=== PATIENT | female | born 1990 | race African-American/Black ===

== ENCOUNTER 2020-04-15 11:49 | Emergency (ER) | payer MEDICARE ==
[~2020-04-15] VITALS: Ht 170.2 cm; Wt 80.0 kg
[2020-04-15 12:03] VITALS: BP 107/65
[2020-04-15 15:03] LABS: BASOPHILS % 0.8 % (0.0-2.0); EOSINOPHILS % 2.4 % (0.0-5.0); HEMATOCRIT. 37.1 % (36.0-48.0); HEMOGLOBIN. 12.5 g/dL (12.0-16.0); LYMPHOCYTES % 29.9 % (20.0-50.0); MEAN CORPUSCULAR HEMOGLOBIN 27.1 pg (28.0-32.0); MEAN CORPUSCULAR VOLUME 80.2 fL (81.0-99.0); MEAN PLATELET VOLUME 7.8 fl (7.4-10.4); MONOCYTES % 5.5 % (2.0-8.0); NEUTROPHILS % 61.4 % (40.0-76.0); PLATELET 330 x1000/uL (130-400); RED BLOOD CELL COUNT 4.63 mill/uL (4.2-5.4); RED CELL DISTRIBUTION WIDTH 17.5 % (11.6-14.6)
[2020-04-15 15:09] LABS: CHLORIDE 107 mEq/L (98-107)
[2020-04-15 15:32] LABS: B-HCG QUANTITATIVE 29415 mIU/mL (<3)
[2020-04-15] MEDS ORDERED: SODIUM CHLORIDE 0.9% 1,000 ML IV ONE (16:30)
[2020-04-15 17:30] LABS: CLARITY URINE CLEAR (CLEAR); COLOR URINE YELLOW (YELLOW); KETONES URINE 3+ (NEGATIVE); LEUKOCYTE ESTERASE URINE 2+ (NEGATIVE); NITRITE URINE NEGATIVE (NEGATIVE); OCCULT BLOOD URINE NEGATIVE (NEGATIVE); PROTEIN URINE NEGATIVE (NEGATIVE); SPECIFIC GRAVITY URINE 1.019 (1.005-1.030); UROBILINOGEN URINE 0.2 E.U./dL (0.2-1.0)
[2020-04-15 17:54] LABS: *AMPHETAMINES SCREEN URINE NEGATIVE (NEGATIVE); *BARBITURATES SCREEN URINE NEGATIVE (NEGATIVE); *BENZODIAZEPINES SCREEN URINE NEGATIVE (NEGATIVE); *COCAINE SCREEN URINE NEGATIVE (NEGATIVE)
[2020-04-15 17:55] LABS: METHADONE URINE SCREEN NEGATIVE (NEGATIVE); OPIATES URINE SCREEN NEGATIVE (NEGATIVE); PHENCYCLIDINE URINE SCREEN NEGATIVE (NEGATIVE)
[2020-04-15 18:13] LABS: CANNABINOID URINE SCREEN PRESUMTIVE POSITIVE (NEGATIVE)
== END 2020-04-15 18:41 | disposition home or self-care (01) ==
LOC: ER 11:49
DX: O23.41 Unspecified infection of urinary tract in pregnancy, first trimester (principal); O20.0 Threatened abortion; O26.891 Other specified pregnancy related conditions, first trimester; Z3A.12 12 weeks gestation of pregnancy; Z91.018 Allergy to other foods
CPT/HCPCS: 36415; 76801; 76817; 80053; 80305; 81003; 81025; 84702; 85025; 86850; 86900; 86901; 99284; J7030

== ENCOUNTER 2020-10-11 06:06 | Inpatient (IN) | payer SELFPAY ==
[~2020-10-11] VITALS: Ht 170.2 cm; Wt 88.9 kg
[2020-10-11] MEDS ORDERED: LACTATED RINGERS 1,000 ML IV SCH (07:30)
[2020-10-11] MEDS ORDERED: MAGNESIUM 4 G PREMIX 100 ML IV SCH (07:30)
[2020-10-11] MEDS ORDERED: MAGNESIUM 20 G PREMIX (L & D) 500 ML IV SCH ×3 (08:00→18:45)
[2020-10-11 08:04] LABS: CLARITY URINE CLOUDY (CLEAR); COLOR URINE DK YELLOW (YELLOW); KETONES URINE NEGATIVE (NEGATIVE); LEUKOCYTE ESTERASE URINE 1+ (NEGATIVE); NITRITE URINE NEGATIVE (NEGATIVE); OCCULT BLOOD URINE 1+ (NEGATIVE); PROTEIN URINE 4+ (NEGATIVE); SPECIFIC GRAVITY URINE 1.029 (1.005-1.030); UROBILINOGEN URINE 0.2 E.U./dL (0.2-1.0)
[2020-10-11 08:08] LABS: BASOPHILS % 2.4 % (0.0-2.0); EOSINOPHILS % 0.6 % (0.0-5.0); HEMATOCRIT. 31.9 % (36.0-48.0); HEMOGLOBIN. 10.4 g/dL (12.0-16.0); LYMPHOCYTES % 33.9 % (20.0-50.0); MEAN CORPUSCULAR VOLUME 67.8 fL (81.0-99.0); MEAN PLATELET VOLUME 9.2 fl (7.4-10.4); MONOCYTES % 6.8 % (2.0-8.0); NEUTROPHILS % 56.3 % (40.0-76.0); PLATELET 208 x1000/uL (130-400); RED CELL DISTRIBUTION WIDTH 20.2 % (11.6-14.6)
[2020-10-11 08:16] LABS: CHLORIDE 109 mEq/L (98-107)
[2020-10-11 08:21] LABS: OPIATES URINE SCREEN NEGATIVE (NEGATIVE)
[2020-10-11 08:22] LABS: *AMPHETAMINES SCREEN URINE NEGATIVE (NEGATIVE); *BARBITURATES SCREEN URINE NEGATIVE (NEGATIVE); *BENZODIAZEPINES SCREEN URINE NEGATIVE (NEGATIVE); *COCAINE SCREEN URINE NEGATIVE (NEGATIVE); PHENCYCLIDINE URINE SCREEN NEGATIVE (NEGATIVE)
[2020-10-11 08:23] LABS: METHADONE URINE SCREEN NEGATIVE (NEGATIVE)
[2020-10-11 08:27] LABS: D-DIMER 4.88 mg/L FEU (<0.50); INR 0.9; PARTIAL THROMBOPLASTIN TIME 24.9 sec (23.4-31.0); PROTHROMBIN TIME 9.6 sec (9.6-11.0)
[2020-10-11] MEDS ORDERED: PENICILLIN G POTASSIUM 5 MMU in DEXT 5% WATER 100 ML IV SCH (08:30)
[2020-10-11 08:32] LABS: CANNABINOID URINE SCREEN PRESUMTIVE POSITIVE (NEGATIVE)
[2020-10-11 08:47] LABS: HEPATITIS B SURFACE ANTIGEN NEGATIVE
[2020-10-11] MEDS ORDERED: CITRIC ACID/SODIUM CITRATE SOLN 30ML UDC PO NR (09:30)
[2020-10-11] MEDS ORDERED: ONDANSETRON HCL 4MG/2ML INJ ONE (09:42)
[2020-10-11] MEDS ORDERED: CEFAZOLIN SODIUM 1000MG/VIAL ONE (09:42)
[2020-10-11] MEDS ORDERED: MORPHINE SULFATE/PF 1MG/ML 10ML AMP ONE (09:43)
[2020-10-11 09:47] LABS: PLATELET ESTIMATE NORMAL
[2020-10-11] MEDS ORDERED: SUCCINYLCHOLINE CHLORIDE 200MG/10ML IV ONE (10:12)
[2020-10-11] MEDS ORDERED: LIDOCAINE HCL/PF 1% 10 MG/ML 5ML VIAL ONE (10:12)
[2020-10-11] MEDS ORDERED: FENTANYL CITRATE/PF 50MCG/ML 2ML VIAL ONE (10:12)
[2020-10-11] MEDS ORDERED: PROPOFOL 200MG/20ML VIAL IV ONE (10:12)
[2020-10-11] MEDS ORDERED: OXYTOCIN 10 UNITS/ML 1ML ONE ×2 (10:34→10:58)
[2020-10-11] MEDS ORDERED: KETOROLAC 60MG/2ML VIAL IM ONE (10:35)
[2020-10-11] MEDS ORDERED: DIPHENHYDRAMINE 50MG/ML VIAL ONE (10:45)
[2020-10-11] MEDS ORDERED: ONDANSETRON HCL 4MG/2ML INJ IV PRN ×2 (11:00→12:00)
[2020-10-11] MEDS ORDERED: DEXT 5%/LR + PITOCIN 20UNITS/L 1,000 ML IV SCH (11:00)
[2020-10-11] MEDS ORDERED: LANOLIN OINT 7GM TUBE TOP PRN (11:00)
[2020-10-11] MEDS ORDERED: RHO(D) IMMUNE GLOBULIN 300 MCG/SYR IM PRN (11:00)
[2020-10-11] MEDS ORDERED: HYDROCODONE/ACETAMINOPHEN 5/325MG TABLET PO PRN (11:00)
[2020-10-11] MEDS ORDERED: HYDROMORPHONE HCL/PF 2MG/ML CPJ IV PRN (12:00)
[2020-10-11] MEDS ORDERED: MORPHINE SULFATE 2 MG/ML CPJ (NOT FOR IM USE) IV PRN (12:00)
[2020-10-11] MEDS ORDERED: FENTANYL CITRATE/PF 50MCG/ML 2ML VIAL IV PRN (12:00)
[2020-10-11] MEDS ORDERED: LABETALOL HCL 5MG/ML VIAL 20ML IV PRN ×3 (13:30)
[2020-10-11] MEDS ORDERED: HYDRALAZINE 20MG/ML VIAL IV PRN (13:30)
[2020-10-11] MEDS ORDERED: PENICILLIN G POTASSIUM 2.5 MMU in DEXTROSE 5% WATER 50 ML IV SCH (14:30)
[2020-10-11] MEDS ORDERED: NIFEDIPINE 10MG CAPSULE PO NR (18:45)
[2020-10-11 20:20] VITALS: BP 141/84
[2020-10-11 21:00] VITALS: BP 129/88
[2020-10-11] MEDS: ACETAMINOPHEN WITH CODEINE 300/30MG TABLET PO PRN (22:11)
[2020-10-11] MEDS: DOCUSATE SODIUM 100MG CAPSULE PO SCH (22:12)
[2020-10-12] VITALS (7 sets, daily range): BP systolic 144–168; BP diastolic 78–100
[2020-10-12 06:13] LABS: BASOPHILS % 0.6 % (0.0-2.0); EOSINOPHILS % 0.1 % (0.0-5.0); HEMATOCRIT. 31.6 % (36.0-48.0); HEMOGLOBIN. 10.3 g/dL (12.0-16.0); MEAN CORPUSCULAR HEMOGLOBIN 22.2 pg (28.0-32.0); MEAN CORPUSCULAR VOLUME 68.2 fL (81.0-99.0); MEAN PLATELET VOLUME 9.3 fl (7.4-10.4); MONOCYTES % 3.6 % (2.0-8.0); NEUTROPHILS % 75.7 % (40.0-76.0); PLATELET 222 x1000/uL (130-400); RED BLOOD CELL COUNT 4.64 mill/uL (4.2-5.4); RED CELL DISTRIBUTION WIDTH 20.5 % (11.6-14.6)
[2020-10-12] MEDS: PRENATAL VIT/FE FUMARATE/FA TABLET PO SCH (09:00)
[2020-10-12] MEDS ORDERED: MEASLES,MUMPS&RUBELLA VACCINE 1 VIAL SUBCUT ONE (09:00)
[2020-10-12] MEDS: LABETALOL HCL 100MG TABLET PO SCH ×2 (10:32→22:31)
[2020-10-12] MEDS: ACETAMINOPHEN WITH CODEINE 300/30MG TABLET PO PRN ×2 (15:11→22:40)
[2020-10-12] MEDS: IBUPROFEN 400MG TABLET PO PRN (18:09)
[2020-10-12] MEDS: DOCUSATE SODIUM 100MG CAPSULE PO SCH (22:30)
[2020-10-13] VITALS (7 sets, daily range): BP systolic 141–188; BP diastolic 68–97
[2020-10-13] MEDS: ACETAMINOPHEN WITH CODEINE 300/30MG TABLET PO PRN (03:10)
[2020-10-13] MEDS ORDERED: LABETALOL HCL 100MG TABLET PO SCH (06:00)
[2020-10-13] MEDS: IBUPROFEN 400MG TABLET PO PRN ×2 (06:09→13:41)
[2020-10-13] MEDS: PRENATAL VIT/FE FUMARATE/FA TABLET PO SCH (10:33)
[2020-10-13] MEDS: LABETALOL HCL 100MG TABLET PO SCH ×2 (10:35→14:54)
== END 2020-10-13 18:41 | disposition home or self-care (01) | DRG 540 ==
LOC: OBSVTOIN 06:06 → 8 EST LDRP 06:06 → 8EST 20:20
PROVIDERS: ADMIT Specialist; ATTEND Specialist
PROC: 10D00Z1 Extraction of Products of Conception, Low, Open Approach (ICD-10-PCS; principal; 2020-10-11)
DX: O99.824 Streptococcus B carrier state complicating childbirth (principal); O13.4 Gestational [pregnancy-induced] hypertension without significant proteinuria, complicating childbirth; O99.02 Anemia complicating childbirth; O76 Abnormality in fetal heart rate and rhythm complicating labor and delivery; D62 Acute posthemorrhagic anemia; Z37.0 Single live birth; Z3A.39 39 weeks gestation of pregnancy
CPT/HCPCS: 36415; 80053; 80305; 80349; 81003; 83735; 84550; 85025; 85379; 85384; 86592; 86703; 86705; 86762; 86850; 86900; 87340; 88307; 90707; 99281; J0330; J0690; J1200; J1885; J2270; J2274; J2405; J2540; J2590; J2704; J3010; J3475; J3490; J7060